=== PATIENT | female | born 1955 | race Caucasian/White ===

== ENCOUNTER 2017-12-02 15:14 | Emergency (ER) | payer OTHER ==
[2017-12-02] MEDS: ONDANSETRON ODT 4 MG TAB.RAPDIS. PO (16:46)
[2017-12-02] MEDS: ACETAMINOPHEN 500 MG TABLET PO (16:46)
== END 2017-12-02 18:13 | disposition home or self-care (01) ==
LOC: ER 15:14
DX: S09.90XA Unspecified injury of head, initial encounter (principal); M54.2 Cervicalgia; M25.562 Pain in left knee; Z88.2 Allergy status to sulfonamides; Z88.8 Allergy status to other drugs, medicaments and biological substances; W10.9XXA Fall (on) (from) unspecified stairs and steps, initial encounter; Y93.89 Activity, other specified; Y99.8 Other external cause status; Y92.89 Other specified places as the place of occurrence of the external cause
CPT/HCPCS: 70450; 72125; 73562; 99284; Q0162